=== PATIENT | male | born 1950 | race Caucasian/White ===

== ENCOUNTER → 2017-06-08 | Outpatient (CLI) | payer BC ==
[~2017-06-08] MED LIST: ACETAMINOPHEN-H1 TA2 PO; ALPRAZOLAM0.25 M2 PO; LISINOPRIL20 MG PO; METOPROLOL TART50 M1 PO; NAPROXEN500 MG PO; NIFEDIPINE ER30 M1 PO; NORCO 5-325 TA1 EACH PO; OMEPRAZOLE40 MG PO; PAROXETINE HCL40 MG PO; PRAVASTATIN SOD40 MG PO
[2017-06-08 08:32] LABS: ALBUMIN 3.6 gm/dl (3.1-4.5); ALKALINE PHOSPHATASE 133 U/L (45-117); BUN 23 mg/dl (7-24); CHLORIDE 110 mmol/L (98-107); CHOLESTEROL 162 mg/dL (<200); CREATININE 0.91 mg/dL (0.70-1.30); HDL CHOLESTEROL 39 mg/dl (40-60); LDL CHOLESTEROL 85 mg/dL (9-159); POTASSIUM 4.2 mmol/L (3.5-5.1); SGOT/AST 22 IU/L (3-35); SGPT/ALT 30 U/L (12-78); SODIUM 143 mmol/L (136-145); TOTAL PROTEIN 7.4 gm/dL (6.4-8.2); TRIGLYCERIDES 189 mg/dl (<150); VLDL CHOLESTEROL 38 mg/dL (6-40)
== END | disposition home or self-care (01) ==
LOC: LAB 07:25
PROVIDERS: Physician Assistant Medical
DX: E78.00 Pure hypercholesterolemia, unspecified (principal); Z72.89 Other problems related to lifestyle

== ENCOUNTER 2020-08-30 17:53 | Emergency (ER) | payer OTHER ==
[~2020-08-30] VITALS: Ht 177.8 cm; Wt 99.8 kg
[2020-08-30] MEDS ORDERED: PROAIR HFA8.5 GM INH (20:43)
[2020-08-30] MEDS ORDERED: PREDNISONE50 MG PO (20:43)
== END 2020-08-30 20:52 | disposition home or self-care (01) ==
LOC: ED 17:53
DX: J40 Bronchitis, not specified as acute or chronic (principal); Z79.899 Other long term (current) drug therapy

== ENCOUNTER 2023-01-13 07:26 | Emergency (ER) | payer OTHER ==
[~2023-01-13] VITALS: Ht 177.8 cm; Wt 102.1 kg
[~2023-01-13 07:26] MED LIST changes: +PREDNISONE50 MG PO; +PROAIR HFA8.5 GM INH
[2023-01-13 08:02] LABS: BASO % 0.2 % (0.0-1.0); EOS # 0.1 10*3/uL (0.0-0.4); EOS % 1.3 % (1.0-4.0); HEMATOCRIT 38.2 % (42.0-52.0); LYMPH # 2.4 10*3/uL (1.3-4.4); LYMPH % 26.4 % (27.0-41.0); MEAN CELL VOLUME 89.9 fl (80.0-94.0); MEAN CORPUSCULAR HGB 30.8 pg (27.0-31.0); MEAN CORPUSCULAR HGB CONC 34.3 g/dl (33.0-37.0); MEAN PLATELET VOLUME 9.6 fl (9.6-12.3); MONO # 0.8 10*3/uL (0.1-1.0); MONO % 8.8 % (3.0-9.0); NEUT # 5.7 10*3/uL (2.3-7.9); NEUT % 62.9 % (47.0-73.0); PLATELET COUNT AUTOMATED 230 10*3/uL (130-400); RED BLOOD COUNT 4.25 10*6/uL (4.50-5.90); RED CELL DISTRI WIDTH 13.1 % (0-14.5)
[2023-01-13 08:20] LABS: ALKALINE PHOSPHATASE 127 U/L (46-116); BUN 11 mg/dl (9-23); CHLORIDE 106 mmol/L (98-107); LIPASE 34 U/L (12-53); POTASSIUM 2.9 mmol/L (3.4-5.1); SGPT/ALT 33 U/L (10-49); TOTAL PROTEIN 6.7 gm/dL (6.0-8.0)
[2023-01-13] MEDS ORDERED: METRONIDAZOLE500 M1 PO (11:09)
[2023-01-13] MEDS ORDERED: CIPRO500 MG PO (11:09)
== END 2023-01-13 11:18 | disposition home or self-care (01) ==
LOC: ED 07:26
PROVIDERS: Internal Medicine
DX: K57.32 Diverticulitis of large intestine without perforation or abscess without bleeding (principal); E87.6 Hypokalemia; I10 Essential (primary) hypertension; I34.1 Nonrheumatic mitral (valve) prolapse; K21.9 Gastro-esophageal reflux disease without esophagitis; F41.9 Anxiety disorder, unspecified; Z98.890 Other specified postprocedural states

== ENCOUNTER 2023-05-01 17:19 | Emergency (ER) | payer OTHER ==
[~2023-05-01] VITALS: Ht 177.8 cm; Wt 97.5 kg
[~2023-05-01 17:19] MED LIST changes: +CIPRO500 MG PO; +METRONIDAZOLE500 M1 PO
[2023-05-01] MEDS ORDERED: ENTRESTO 49 MG1 EACH PO (18:16)
[2023-05-01] MEDS ORDERED: AMLODIPINE BESY10 MG PO (18:17)
[2023-05-01] MEDS ORDERED: LASIX20 MG PO (18:18)
[2023-05-01] MEDS ORDERED: TOPROL XL50 M1 PO (18:18)
[2023-05-01] MEDS ORDERED: OMEGA 3 FISH O1 EACH PO (18:19)
== END 2023-05-01 21:04 | disposition home or self-care (01) ==
LOC: ED 17:19
DX: S80.212A Abrasion, left knee, initial encounter (principal); I11.0 Hypertensive heart disease with heart failure; I50.9 Heart failure, unspecified; Z79.899 Other long term (current) drug therapy; Z79.82 Long term (current) use of aspirin; W10.8XXA Fall (on) (from) other stairs and steps, initial encounter; Y93.89 Activity, other specified; Y92.89 Other specified places as the place of occurrence of the external cause; Y99.8 Other external cause status

== ENCOUNTER → 2024-04-26 | Outpatient (CLI) | payer MEDICARE ==
[~2024-04-26] MED LIST changes: +AMLODIPINE BESY10 MG PO; +ENTRESTO 49 MG1 EACH PO; +LASIX20 MG PO; +OMEGA 3 FISH O1 EACH PO; +TOPROL XL50 M1 PO
== END | disposition home or self-care (01) ==
LOC: RAD 09:11
PROVIDERS: ATTEND Nurse Practitioner Family
DX: N20.0 Calculus of kidney (principal)

== ENCOUNTER → 2025-04-14 | Outpatient (CLI) | payer MEDICARE | END | disposition home or self-care (01) | LOC: RAD 10:23 | PROVIDERS: ATTEND Urology | DX: N20.0 Calculus of kidney (principal); M47.816 Spondylosis without myelopathy or radiculopathy, lumbar region; Z90.49 Acquired absence of other specified parts of digestive tract ==